=== PATIENT | male | born 1955 | race Caucasian/White ===

== ENCOUNTER 2018-02-23 15:43 | Inpatient (IN) | payer BC ==
[2018-02-23 16:12] LABS: CHLORIDE,CL 102 mEq/L (98-106); SODIUM,NA 138 mEq/L (136-145)
[2018-02-23] MEDS ORDERED: Sodium Chloride 0.9% 10 ML Syringe FLUSH PRN (17:05)
[2018-02-23] MEDS ORDERED: Ondansetron 4 MG Tab.DIS PO PRN (17:05)
[2018-02-23] MEDS ORDERED: Acetaminophen 325 MG Tab PO PRN (17:05)
[2018-02-23 17:09] VITALS: BP 148/79
[2018-02-23] MEDS ORDERED: fentaNYL 100 MCG/2 ML SDV IM PRN (17:11)
[2018-02-23] MEDS ORDERED: Lactated Ringers 1,000 ML IV SCH (17:15)
[2018-02-23] MEDS ORDERED: Piperacillin/Tazobactam 3.375 GM in Sodium Chloride 0.9% 50 ML IV ONE (17:24)
[2018-02-23] MEDS ORDERED: fentaNYL 100 MCG/2 ML SDV IV PRN (17:34)
--- NOTE | 2018-02-23 17:36 | PCM.PN ---
- General Info Date of Service: 02/23/18 Admission Dx/Problem (Free Text): abdominal pain. Perforated bowel secondary to diverticulitis. Functional Status: Reports: Other (pain increases with any movement especially if he sits up.) - Review of Systems General: Reports: No Symptoms HEENT: Reports: No Symptoms Pulmonary: Reports: No Symptoms Cardiovascular: Reports: No Symptoms Gastrointestinal: Reports: Abdominal Pain Genitourinary: Reports: Other (pain radiates into his penis when he moves.) Musculoskeletal: Reports: No Symptoms Skin: Reports: No Symptoms Neurological: Reports: No Symptoms - Patient Data Vitals - Most Recent: Last Vital Signs Temp 99.4 F 02/23/18 16:36 Pulse 95 02/23/18 16:36 Resp 16 02/23/18 16:36 BP 148/79 H 02/23/18 16:36 Pulse Ox 94 L 02/23/18 16:36 Weight - Most Recent: 190 lb Lab Results Last 24 Hours: Laboratory Results - last 24 hr 02/23/18 02/23/18 02/23/18 Range/Units 15:50 15:50 15:50 WBC 23.3 H* (5.0-10.0) 10^3/uL RBC 4.99 (4.50-6.00) 10^6/uL Hgb 15.1 (14.0-18.0) g/dL Hct 43.7 (40.0-54.0) % MCV 87.6 (82.0-94.0) fL MCH 30.3 (27.0-32.0) pg MCHC 34.6 (33.0-38.0) g/dL RDW Coeff of Francine 14.9 (11.0-15.0) % Plt Count 322 (150-400) 10^3/uL Add Manual Diff Yes Neutrophils % (Manual) 81 (35-85) % Band Neutrophils % 7 H (0-5) % Lymphocytes % (Manual) 6 L (21-55) % Monocytes % (Manual) 6 (2-12) % Absolute Neutrophils 20.50 H (1.80-7.00) 10^3/uL Lymphocytes # (Manual) 1.40 (1.00-4.80) 10^3/uL Monocytes # (Manual) 1.40 H (0.00-0.80) 10^3/uL Sodium 138 (136-145) mEq/L Potassium 3.8 (3.5-5.0) mEq/L Chloride 102 (98-106) mEq/L Carbon Dioxide 24 (21-32) mmol/L BUN 15 (7-18) mg/dL Creatinine 1.0 (0.7-1.3) mg/dL Est Cr Clr Drug Dosing TNP Estimated GFR (MDRD) > 60 (>=60) mL/min Glucose 141 H D (75-99) mg/dL Calcium 9.0 (8.4-10.1) mg/dL Total Bilirubin 1.5 H (0.0-1.0) mg/dL AST 15 (15-37) U/L ALT 27 (12-78) U/L Alkaline Phosphatase 80 (46-116) U/L C-Reactive Protein 16.4 H (0.2-0.8) mg/dL Total Protein 8.0 (6.4-8.2) g/dL Albumin 4.0 (3.4-5.0) g/dL Urine Color Dark yellow (YELLOW) Urine Appearance Clear (CLEAR) Urine pH 6.0 (4.5-8.0) Ur Specific [place] >= 1.030 H (1.003-1.020) Urine Protein 100 H (NEGATIVE) mg/dL Urine Glucose (UA) Negative (NEGATIVE) mg/dL Urine Ketones 40 H (NEGATIVE) mg/dL Urine Occult Blood Trace-lysed H (NEGATIVE) Urine Nitrite Negative (NEGATIVE) Urine Bilirubin Small H (NEGATIVE) Urine Urobilinogen 0.2 (0.2-1.0) EU/dL Ur Leukocyte Esterase Negative (NEGATIVE) Urine RBC 0-5 (0-5) /HPF Urine WBC 0-5 (0-5) /HPF Ur Squamous Epith Cells Occasional H (NOT SEEN) /HPF Urine Bacteria Occasional H (NOT SEEN) /HPF Urine Mucus Many H (NOT SEEN) /HPF Med Orders - Current: Current Medications Acetaminophen (Tylenol) 650 mg PO Q4H PRN PRN Reason: Pain (Mild 1-3)/fever Enoxaparin Sodium (Lovenox) 40 mg SUBCUT Q24H [facility] Fentanyl (Sublimaze) 50 mcg IM Q4H PRN PRN Reason: Abdominal Pain Lactated Ringer's (Ringers, Lactated) 1,000 mls @ 250 mls/hr IV ASDIRECTED [facility] Last Admin: 02/23/18 17:20 Dose: 125 mls/hr Piperacillin Sod/Tazobactam (Sod 3.375 gm/ Sodium Chloride) 50 mls @ 100 mls/ hr IV NOW ONE Stop: 02/23/18 17:53 Ondansetron HCl (Zofran Odt) 4 mg PO Q4H PRN PRN Reason: nausea, able to take PO Pantoprazole Sodium (Protonix Iv) 40 mg IVPUSH Q12H [facility] Sodium Chloride (Saline Flush) 10 ml FLUSH ASDIRECTED PRN PRN Reason: Keep Vein Open Discontinued Medications Levofloxacin/Dextrose 500 mg/ (Premix) 100 mls @ 100 mls/hr IV Q24H [facility] Metronidazole 500 mg/ Premix 100 mls @ 100 mls/hr IV Q8H [facility] Sodium Chloride (Normal Saline) Confirm Administered Dose 250 mls @ as directed .ROUTE .STK-MED ONE Stop: 02/23/18 17:44 Piperacillin Sod/Tazobactam Sod (Zosyn) Confirm Administered Dose 3.375 gm .ROUTE .STK-MED ONE Stop: 02/23/18 17:42 - Exam General: Alert, Oriented Neck: Supple Lungs: Clear to Auscultation, Normal Respiratory Effort Cardiovascular: Regular Rate, Regular Rhythm GI/Abdominal Exam: Guarding, Tender, Abnormal Bowel Sounds (No bowel sounds heard currently. Abdomen is distended and tender with any palpation.) Extremities: No Pedal Edema Skin: Warm, Dry Psy/Mental Status: Alert Physical Findings Comments:: Discussed CT findings with Dr. Smith, surgeon at [facility]. He will accept him on transfer per ALS ambulance. Will give Zosyn and LR at 250 ml hour. Will give Fentanyl enroute as needed for pain control. - Problem List & Annotations (1) Diverticular disease of intestine with perforation and abscess SNOMED Code(s): 571376598, 097952607, 401113945 Code(s): K57.80 - DVTRCLI OF INTEST, PART UNSP, W PERF AND ABSCESS W/O BLEED Status: Acute Priority: High Current Visit: Yes - Problem List Review Problem List Initiated/Reviewed/Updated: Yes - My Orders Last 24 Hours: My Active Orders 02/23/18 Abdomen Pelvis w Cont [CT] Routine 02/23/18 15:50 CULTURE BLOOD [BC] Routine 02/23/18 17:05 Patient Status [ADT] Routine Height and Weight [RC] DAILY Oxygen Therapy [RC] PRN Up ad Marcela [RC] ASDIRECTED VTE/DVT Education [RC] PER UNIT ROUTINE Vital Signs [RC] Q4H Acetaminophen [Tylenol] 650 mg PO Q4H PRN Ondansetron [Zofran ODT] 4 mg PO Q4H PRN Sodium Chloride 0.9% [Saline Flush] 10 ml FLUSH ASDIRECTED PRN Peripheral IV Insertion Adult [OM.PC] Routine Resuscitation Status Routine 02/23/18 17:06 Intake and Output [RC] QSHIFT Pulse Oximetry [RC] PRN 02/23/18 17:08 Peripheral IV Care [RC] . DIRECTED 02/23/18 17:11 fentaNYL [Sublimaze] 50 mcg IM Q4H PRN 02/23/18 17:15 Lactated Ringers [Ringers, Lactated] 1,000 ml IV ASDIRECTED 02/23/18 17:24 Piperacillin/Tazobactam [Zosyn] 3.375 gm Sodium Chloride 0.9% [Normal Saline] 50 ml IV NOW 02/23/18 18:00 Pantoprazole [ProTONIX IV] 40 mg IVPUSH Q12H 02/23/18 20:00 Enoxaparin [Lovenox] 40 mg SUBCUT Q24H 02/23/18 Dinner Nothing per Oral Now Diet [DIET] 02/24/18 05:11 C-REACTIVE PROTEIN [CHEM] AM CBC W/O DIFF,HEMOGRAM [HEME] AM COMPREHENSIVE METABOLIC PN,CMP [CHEM] AM
[2018-02-23] MEDS ORDERED: Sodium Chloride 0.9% 250 ML ONE (17:43)
--- NOTE | 2018-02-23 17:46 | PCM.DCSUM1 ---
Discharge Summary - Hospital Course Brief History: Pt was admitted from the clinic with severe abdominal pain that started about 2300 last evening. Has had some fevers during the night. Did feel some better this morning and then became worse this afternoon. CT was done at admit and was found to have diverticulitis with perforation. - Discharge Data Discharge Date: 02/23/18 Discharge Disposition: DC/Tfer to Acute Hospital 02 Condition: Fair - Discharge Diagnosis/Problem(s) (1) Diverticular disease of intestine with perforation and abscess SNOMED Code(s): 028588800, 720981741, [id number] ICD Code: K57.80 - DVTRCLI OF INTEST, PART UNSP, W PERF AND ABSCESS W/O BLEED Status: Acute Priority: High Current Visit: Yes - Patient Instructions Diet: NPO Activity: Bedrest - Discharge Plan Home Medications: Home Meds Aspirin [Halfprin] 81 mg PO DAILY 01/14/14 [History] Cholecalciferol (Vitamin D3) [Vitamin D] 1,000 units PO DAILY 01/14/14 [History] Ubidecarenone [Coenzyme Q10] 50 mg PO DAILY 01/14/14 [History] Magnesium 250 mg PO DAILY 08/28/15 [History] atorvaSTATin [Lipitor] 5 mg PO DAILY 08/28/15 [History] - Discharge Summary/Plan Comment DC Time >30 min.: No Discharge Summary/Plan Comment: Will transfer to [facility] to Dr. Smith per ALS ambulance with Fentanyl as needed for pain control enroute. LR @ 250 ml/ hour enroute. To remain NPO enroute. - Patient Data Vitals - Most Recent: Last Vital Signs Temp 99.4 F 02/23/18 16:36 Pulse 95 02/23/18 16:36 Resp 16 02/23/18 16:36 BP 148/79 H 02/23/18 16:36 Pulse Ox 94 L 02/23/18 16:36 Weight - Most Recent: 190 lb Lab Results - Last 24 hrs: Laboratory Results - last 24 hr 02/23/18 02/23/18 02/23/18 Range/Units 15:50 15:50 15:50 WBC 23.3 H* (5.0-10.0) 10^3/uL RBC 4.99 (4.50-6.00) 10^6/uL Hgb 15.1 (14.0-18.0) g/dL Hct 43.7 (40.0-54.0) % MCV 87.6 (82.0-94.0) fL MCH 30.3 (27.0-32.0) pg MCHC 34.6 (33.0-38.0) g/dL RDW Coeff of Francine 14.9 (11.0-15.0) % Plt Count 322 (150-400) 10^3/uL Add Manual Diff Yes Neutrophils % (Manual) 81 (35-85) % Band Neutrophils % 7 H (0-5) % Lymphocytes % (Manual) 6 L (21-55) % Monocytes % (Manual) 6 (2-12) % Absolute Neutrophils 20.50 H (1.80-7.00) 10^3/uL Lymphocytes # (Manual) 1.40 (1.00-4.80) 10^3/uL Monocytes # (Manual) 1.40 H (0.00-0.80) 10^3/uL Sodium 138 (136-145) mEq/L Potassium 3.8 (3.5-5.0) mEq/L Chloride 102 (98-106) mEq/L Carbon Dioxide 24 (21-32) mmol/L BUN 15 (7-18) mg/dL Creatinine 1.0 (0.7-1.3) mg/dL Est Cr Clr Drug Dosing TNP Estimated GFR (MDRD) > 60 (>=60) mL/min Glucose 141 H D (75-99) mg/dL Calcium 9.0 (8.4-10.1) mg/dL Total Bilirubin 1.5 H (0.0-1.0) mg/dL AST 15 (15-37) U/L ALT 27 (12-78) U/L Alkaline Phosphatase 80 (46-116) U/L C-Reactive Protein 16.4 H (0.2-0.8) mg/dL Total Protein 8.0 (6.4-8.2) g/dL Albumin 4.0 (3.4-5.0) g/dL Urine Color Dark yellow (YELLOW) Urine Appearance Clear (CLEAR) Urine pH 6.0 (4.5-8.0) Ur Specific [place] >= 1.030 H (1.003-1.020) Urine Protein 100 H (NEGATIVE) mg/dL Urine Glucose (UA) Negative (NEGATIVE) mg/dL Urine Ketones 40 H (NEGATIVE) mg/dL Urine Occult Blood Trace-lysed H (NEGATIVE) Urine Nitrite Negative (NEGATIVE) Urine Bilirubin Small H (NEGATIVE) Urine Urobilinogen 0.2 (0.2-1.0) EU/dL Ur Leukocyte Esterase Negative (NEGATIVE) Urine RBC 0-5 (0-5) /HPF Urine WBC 0-5 (0-5) /HPF Ur Squamous Epith Cells Occasional H (NOT SEEN) /HPF Urine Bacteria Occasional H (NOT SEEN) /HPF Urine Mucus Many H (NOT SEEN) /HPF Med Orders - Current: Current Medications Acetaminophen (Tylenol) 650 mg PO Q4H PRN PRN Reason: Pain (Mild 1-3)/fever Enoxaparin Sodium (Lovenox) 40 mg SUBCUT Q24H [facility] Fentanyl (Sublimaze) 50 mcg IV Q4H PRN PRN Reason: Abdominal Pain Lactated Ringer's (Ringers, Lactated) 1,000 mls @ 250 mls/hr IV ASDIRECTED [facility] Last Admin: 02/23/18 17:20 Dose: 125 mls/hr Piperacillin Sod/Tazobactam (Sod 3.375 gm/ Sodium Chloride) 50 mls @ 100 mls/ hr IV NOW ONE Stop: 02/23/18 17:53 Last Admin: 02/23/18 17:40 Dose: 100 mls/hr Ondansetron HCl (Zofran Odt) 4 mg PO Q4H PRN PRN Reason: nausea, able to take PO Pantoprazole Sodium (Protonix Iv) 40 mg IVPUSH Q12H [facility] Last Admin: 02/23/18 17:35 Dose: Not Given Sodium Chloride (Saline Flush) 10 ml FLUSH ASDIRECTED PRN PRN Reason: Keep Vein Open Discontinued Medications Fentanyl (Sublimaze) 50 mcg IM Q4H PRN PRN Reason: Abdominal Pain Levofloxacin/Dextrose 500 mg/ (Premix) 100 mls @ 100 mls/hr IV Q24H [facility] Metronidazole 500 mg/ Premix 100 mls @ 100 mls/hr IV Q8H [facility] Sodium Chloride (Normal Saline) Confirm Administered Dose 250 mls @ as directed .ROUTE .STK-MED ONE Stop: 02/23/18 17:44 Last Admin: 02/23/18 17:35 Dose: Not Given Piperacillin Sod/Tazobactam Sod (Zosyn) Confirm Administered Dose 3.375 gm .ROUTE .[facility]-MED ONE Stop: 02/23/18 17:42 Last Admin: 02/23/18 17:35 Dose: Not Given
[2018-02-23] MEDS ORDERED: Pantoprazole 40 MG Vial IVPUSH SCH (18:00)
[2018-02-23] MEDS ORDERED: metroNIDAZOLE/Normal Saline 500 MG in Premix Bag 1 BAG IV SCH (18:00)
[2018-02-23] MEDS ORDERED: Levofloxacin/Dextrose 5%-Water 500 MG in Premix Bag 1 BAG IV SCH (19:00)
[2018-02-23] MEDS ORDERED: Enoxaparin 40 MG/0.4 ML Syringe SUBCUT SCH (20:00)
== END 2018-02-23 18:00 | DRG 244 ==
LOC: CC.FCMC 15:43 → CC.MS 15:43 → UNDOADMIN 16:32 → CC.MS 17:05
PROVIDERS: ADMIT Physician Assistant Medical; ATTEND General Practice
DX: K57.20 Diverticulitis of large intestine with perforation and abscess without bleeding (principal); K57.90 Diverticulosis of intestine, part unspecified, without perforation or abscess without bleeding; Z88.2 Allergy status to sulfonamides; Z88.8 Allergy status to other drugs, medicaments and biological substances; Z79.82 Long term (current) use of aspirin; Z79.899 Other long term (current) drug therapy
CPT/HCPCS: 36415; 74177; 80053; 81001; 85025; 86140; 87040; J2543; J3010; J7050; J7120; Q9967

== ENCOUNTER 2018-05-16 07:54 | Emergency (ER) | payer BC ==
--- NOTE | 2018-05-16 08:13 | EDM.PDOC ---
ED HPI GENERAL MEDICAL PROBLEM - General Stated Complaint: CAN'T URINATE Time Seen by Provider: 05/16/18 08:13 Source of Information: Reports: Patient - History of Present Illness INITIAL COMMENTS - FREE TEXT/NARRATIVE: Sami is a 62 year old male, with PMH of BPH and hyperlipidemia, who presents to the ED with c/o inability to urinate. He reports that throughout the night he noted he was only dribbling small amounts of urine. He reports that around 5 am he was unable to urinate and started having suprapubic pain, as well as pain in his lower back. Prior to this he had no urinary issues. He denies any hematuria, dysuria, or frequency increased from baseline. He does report that in 2016 he had similar issue. He reports he had a catheter placed for a day and then he was able to void normally. He reports he follows with Dr. Gross (urology ) for persistently elevated PSA. He was last seen in January with PSA of 41.52. Per record he has had 6 negative biopsies as well as a prostate MRI. He reports he had a sigmoid colectomy with end colostomy due to perforated diverticulitis on 02/23/2018. He reports he has been doing well with the colostomy and has had good output up until this morning. Reports that normally in the morning his ostomy bag is full, but this morning he hasn't had anything out. He did report he has not eaten breakfast yet this morning, but did have a cup of coffee. He reports that yesterday he was feeling well and had no issues prior to going to sleep last night. He denies any fever, chills, nausea, vomiting, dysuria, hematuria, abdominal pain, decreased appetite, weakness. Onset: Today Duration: Getting Worse Location: Reports: Abdomen (suprapubic), Back (lower R> L) Associated Symptoms: Reports: Other (inablity to urinate). Denies: Confusion, Chest Pain, Cough, cough w sputum, Diaphoresis, Fever/Chills, Headaches, Loss of Appetite, Malaise, Nausea/Vomiting, Rash, Seizure, Shortness of Breath, Syncope, Weakness Lower Back Pain Score (Numeric/FACES): 6 - Related Data Allergies Allergy/AdvReac Type Severity Reaction Status Date / Time ezetimibe Allergy Muscle Verified 05/16/18 10:05 [From Vytorin 10-10] Aches simvastatin Allergy Muscle Verified 05/16/18 10:05 [From Vytorin 10-10] Aches Sulfa (Sulfonamide Allergy Rash Verified 05/16/18 10:05 Antibiotics) Home Meds: Home Meds Aspirin [Halfprin] 81 mg PO DAILY 01/14/14 [History] Cholecalciferol (Vitamin D3) [Vitamin D] 1,000 units PO DAILY 01/14/14 [History] Ubidecarenone [Coenzyme Q10] 50 mg PO DAILY 01/14/14 [History] Magnesium 250 mg PO DAILY 08/28/15 [History] atorvaSTATin [Lipitor] 5 mg PO DAILY 08/28/15 [History] Tamsulosin HCl [Flomax] 0.4 mg PO DAILY 30 Days #30 cap.er.24h 05/16/18 [Rx] Past Medical History Cardiovascular History: Reports: High Cholesterol Gastrointestinal History: Reports: Diverticulosis Genitourinary History: Reports: BPH, Prostate Disorder, UTI, Recurrent Other Musculoskeletal History: arthritis throughout - Past Surgical History GI Surgical History: Reports: Colonoscopy Other Musculoskeletal Surgeries/Procedures:: R foot surgery Social & Family History - Family History Family Medical History: Noncontributory ED ROS GENERAL - Review of Systems Review Of Systems: ROS reveals no pertinent complaints other than HPI. Constitutional: Reports: No Symptoms. Denies: Fever, Chills, Weakness, Fatigue , Decreased Appetite Respiratory: Reports: No Symptoms Cardiovascular: Reports: No Symptoms GI/Abdominal: Reports: Other (colostomy decreased output). Denies: Abdominal Pain, Black Stool, Bloody Stool, Constipation, Diarrhea, Decreased Appetite, Nausea, Vomiting : Reports: Flank Pain, Urinary Retention. Denies: Discharge, Dysuria, Frequency, Hematuria, Urgency Musculoskeletal: Reports: Back Pain Skin: Reports: No Symptoms Neurological: Reports: No Symptoms Psychiatric: Reports: No Symptoms Hematologic/Lymphatic: Reports: No Symptoms Immunologic: Reports: No Symptoms ED EXAM, RENAL/ - Physical Exam Exam: See Below Exam Limited By: No Limitations General Appearance: Alert, WD/WN, No Apparent Distress Head: Atraumatic, Normocephalic Neck: Normal Inspection, Supple, Non-Tender, Full Range of Motion Respiratory/Chest: No Respiratory Distress, Lungs Clear, Normal Breath Sounds, No Accessory Muscle Use, Chest Non-Tender Cardiovascular: Normal Peripheral Pulses, Regular Rate, Rhythm, No Edema, No Gallop, No JVD, No Murmur, No Rub GI/Abdominal: Normal Bowel Sounds, Soft, Non-Tender, No Distention, Other ( colostomy) (Male) Exam: Suprapubic Fullness. No: Scrotum Tenderness (L), Scrotum Tenderness (R), Urethral Discharge Back Exam: Normal Inspection, Full Range of Motion, CVA Tenderness (R). No: CVA Tenderness (L) Extremities: Normal Inspection, Normal Range of Motion, Non-Tender, Normal Capillary Refill, No Pedal Edema Neurological: Alert, Oriented, CN II-XII Intact, Normal Cognition, Normal Gait, Normal Reflexes, No Motor/Sensory Deficits Psychiatric: Normal Affect, Normal Mood Skin Exam: Warm, Dry, Intact, Normal Color, No Rash Lymphatic: No Adenopathy Course - Vital Signs Last Recorded V/S: Last Vital Signs Temp 95.5 F 05/16/18 08:00 Pulse 83 05/16/18 08:00 Resp 16 05/16/18 08:00 BP 144/70 H 05/16/18 09:45 Pulse Ox 98 05/16/18 08:00 - Orders/Labs/Meds Labs: Laboratory Tests 05/16/18 Range/Units 08:15 Urine Color Yellow (YELLOW) Urine Appearance Clear (CLEAR) Urine pH 6.5 (4.5-8.0) Ur Specific [place] 1.010 (1.003-1.020) Urine Protein Negative (NEGATIVE) mg/dL Urine Glucose (UA) Negative (NEGATIVE) mg/dL Urine Ketones Negative (NEGATIVE) mg/dL Urine Occult Blood Moderate H (NEGATIVE) Urine Nitrite Negative (NEGATIVE) Urine Bilirubin Negative (NEGATIVE) Urine Urobilinogen 0.2 (0.2-1.0) EU/dL Ur Leukocyte Esterase Negative (NEGATIVE) Urine RBC 20-30 H (0-5) /HPF Urine WBC Not seen (0-5) /HPF Ur Squamous Epith Cells Occasional H (NOT SEEN) /HPF Urine Bacteria Occasional H (NOT SEEN) /HPF Urine Mucus Occasional H (NOT SEEN) /HPF - Re-Assessments/Exams Free Text/Narrative Re-Assessment/Exam: Nursing staff attempted 16 F prince catheter and met resistance. Coude then placed without difficulty and 600 mL urine returned. UA sent to lab. UA negative except for RBCs, likely from traumatizing catheterization. Departure - Departure Time of Disposition: 09:29 Disposition: Home, Self-Care 01 Condition: Good Clinical Impression: Urinary retention due to benign prostatic hyperplasia - Discharge Information Prescriptions: Tamsulosin HCl [Flomax] 0.4 mg PO DAILY 30 Days #30 cap.er.24h Instructions: Benign Prostatic Hyperplasia, Indwelling Urinary Catheter Insertion, Care After Referrals: Dylan Gross MD [Physician] - Forms: ED Department Discharge Additional Instructions: Urine analysis negative Start Flomax daily. Script sent to pharmacy. Keep Prince catheter in place until f/u with urology. Notify clinic if any issues with output from colostomy Return to ED for any other emergent needs
[2018-05-16 10:13] VITALS: BP 144/70
== END 2018-05-16 10:00 | disposition home or self-care (01) ==
LOC: CC.ED 07:54
DX: N40.1 Benign prostatic hyperplasia with lower urinary tract symptoms (principal); R33.8 Other retention of urine; E78.00 Pure hypercholesterolemia, unspecified; Z79.82 Long term (current) use of aspirin; Z79.899 Other long term (current) drug therapy; Z88.2 Allergy status to sulfonamides; Z88.8 Allergy status to other drugs, medicaments and biological substances
CPT/HCPCS: 51701; 51702; 81001; 99283

== ENCOUNTER → 2021-01-23 | Day surgery (SDC) | payer BC ==
[~2021-01-23] MED LIST: Ketamine 200 MG/20 ML MDV ONE; Lactated Ringers 1,000 ML IV SCH; Lidocaine 2% 5 ML SDV ONE; Propofol 200 MG/20 ML SDV ONE
[2021-01-23 09:36] VITALS: BP 125/66; PULSE 59
--- NOTE | 2021-01-23 11:53 | OR ---
DATE OF OPERATION: 01/23/2021 PREOPERATIVE DIAGNOSIS: HISTORY OF POLYPS. POSTOPERATIVE DIAGNOSIS: HISTORY OF POLYPS. SURGEON: Oleksandr Taylor MD PROCEDURE: DIAGNOSTIC COLONOSCOPY WITH FORCEPS POLYP REMOVAL X3. ANESTHESIA: MAC. COMPLICATIONS: None. SPECIMEN: Three small sessile polyps, each 2 to 3 mm. FINDINGS: 1. Full-length colonoscopy. 2. Status post partial sigmoidectomy. 3. Diverticulosis. 4. Polyps x3. RECOMMENDATIONS: Followup colonoscopy in 5 years. INDICATIONS: Mr. Chavez has a history of polyps removed in the past, once with a large tubulovillous lesion in the rectosigmoid area. He is due for a followup scope. DESCRIPTION OF PROCEDURE: The patient was prepped and draped, placed in the left lateral decubitus position. A lubricated Olympus colonoscope was inserted and with ease advanced to the cecum. Direct visualization of the ileocecal valve and appendiceal orifice was accomplished. The bowel prep was excellent. Upon withdrawal of the scope, cecum, ascending, and transverse colons were completely benign. Left colon is markedly short and as stated earlier, there is still some residual diverticular disease there. In the distal sigmoid area what is left of the sigmoid, the patient had a small 2 mm sessile polyp removed in its entirety with a forceps. He had a second one in the rectosigmoid junction, also about 2 to 3 mm, easily removed with a forceps x2 and the last small polyp in the rectal vault approximately 2 or 3 mm removed with 2 forceps biopsies as well. Retroflexion showed some perianal hemorrhoid disease. Air was suctioned and scope removed without complication. NADINE/JEREMY /[id number]
== END ==
LOC: CC.SDS 07:25
PROVIDERS: ATTEND Family Medicine
DX: Z12.11 Encounter for screening for malignant neoplasm of colon (principal); D12.5 Benign neoplasm of sigmoid colon; K62.1 Rectal polyp; K57.30 Diverticulosis of large intestine without perforation or abscess without bleeding; K64.8 Other hemorrhoids; N40.1 Benign prostatic hyperplasia with lower urinary tract symptoms; R35.1 Nocturia; I10 Essential (primary) hypertension; E78.5 Hyperlipidemia, unspecified; Z88.2 Allergy status to sulfonamides; Z88.8 Allergy status to other drugs, medicaments and biological substances; Z79.899 Other long term (current) drug therapy; Z86.010 Personal history of colon polyps; Z90.49 Acquired absence of other specified parts of digestive tract; Z98.890 Other specified postprocedural states
CPT/HCPCS: 00812; J2704; J7120

== ENCOUNTER 2021-05-11 05:30 | Emergency (ER) | payer MEDICARE, BC ==
--- NOTE | 2021-05-11 06:25 | EDM.PDOC ---
ED HPI GENERAL MEDICAL PROBLEM - General Chief Complaint: General Stated Complaint: "I need a catheter" Time Seen by Provider: 05/11/21 06:00 Source of Information: Reports: Patient History Limitations: Reports: No Limitations - History of Present Illness INITIAL COMMENTS - FREE TEXT/NARRATIVE: Pt states that the last time he was able to urinate was about 2200. He tried again about midnight and has not been able to since. He now feels lots of pressure and back and pelvic pain. He presented to ER with increasing pain. He has known prostate issues and does see Dr. Gross and last saw him several months ago. Had been stable. He states that he had been doing well and has not done anything different prior to not able to void tonight. He states that he had no difficulty emptying his bladder at 2200. Onset: Gradual Duration: Getting Worse Location: Reports: Abdomen Bladder Pain Score (Numeric/FACES): 10 - Related Data Allergies Allergy/AdvReac Type Severity Reaction Status Date / Time ezetimibe Allergy Muscle Verified 05/12/21 14:30 [From Vytorin 10-10] Aches simvastatin Allergy Muscle Verified 05/12/21 14:30 [From Vytorin 10-10] Aches Sulfa (Sulfonamide Allergy Rash Verified 05/12/21 14:30 Antibiotics) Home Meds: Home Meds Ubidecarenone [Coenzyme Q10] 100 mg PO DAILY 01/14/14 [History] Magnesium 250 mg PO DAILY 08/28/15 [History] atorvaSTATin [Lipitor] 5 mg PO DAILY 08/28/15 [History] Tamsulosin HCl [Flomax] 0.4 mg PO DAILY 30 Days #30 cap.er.24h 05/16/18 [Rx] Ascorbic Acid [Vitamin C] 1,000 mg PO DAILY 01/22/21 [History] Cholecalciferol (Vitamin D3) [Vitamin D3] 5,000 unit PO DAILY 01/22/21 [History] lisinopriL [Lisinopril] 40 mg PO DAILY 01/22/21 [History] Past Medical History Cardiovascular History: Reports: High Cholesterol Gastrointestinal History: Reports: Diverticulosis Genitourinary History: Reports: BPH, Prostate Disorder, UTI, Recurrent Other Musculoskeletal History: arthritis throughout - Past Surgical History GI Surgical History: Reports: Colonoscopy Other Musculoskeletal Surgeries/Procedures:: R foot surgery Social & Family History - Family History Family Medical History: No Pertinent Family History - Tobacco Use Tobacco Use Status *Q: Unknown Ever Used Tobacco - Caffeine Use Caffeine Use: Reports: Coffee - Living Situation & Occupation Living situation: Reports: , with Spouse Occupation: Retired ED ROS GENERAL - Review of Systems Review Of Systems: See Below Constitutional: Denies: Fever, Chills : Reports: Hematuria, Pain, Urinary Retention Musculoskeletal: Reports: Back Pain ED EXAM, GENERAL - Physical Exam Exam: See Below Exam Limited By: No Limitations General Appearance: Alert, WD/WN, Moderate Distress Respiratory/Chest: No Respiratory Distress, Lungs Clear, Normal Breath Sounds Cardiovascular: Normal Peripheral Pulses, Regular Rate, Rhythm, No Edema GI/Abdominal: Normal Bowel Sounds, Soft, Tender (to the suprapubic area with any palpation. Bladder in enlarged and tender.) Back Exam: Normal Inspection, Other (tender to the low back.) Neurological: Alert, Oriented Course - Vital Signs Last Recorded V/S: Last Vital Signs Temp 96.6 F L 05/11/21 07:28 Pulse 66 05/11/21 07:28 Resp 18 05/11/21 07:28 BP 118/57 L 05/11/21 07:28 Pulse Ox 95 05/11/21 07:28 - Orders/Labs/Meds Labs: Laboratory Tests 05/11/21 Range/Units 06:23 Urine Color Red (YELLOW) Urine Appearance Turbid (CLEAR) Urine pH 6.0 (4.5-8.0) Ur Specific [place] 1.020 (1.003-1.020) Urine Protein 100 H (NEGATIVE) mg/dL Urine Glucose (UA) Negative (NEGATIVE) mg/dL Urine Ketones Negative (NEGATIVE) mg/dL Urine Occult Blood Large H (NEGATIVE) Urine Nitrite Negative (NEGATIVE) Urine Bilirubin Negative (NEGATIVE) Urine Urobilinogen 0.2 (0.2-1.0) EU/dL Ur Leukocyte Esterase Small H (NEGATIVE) Urine RBC Packed H (0-5) /HPF Urine WBC 0-5 (0-5) /HPF - Re-Assessments/Exams Free Text/Narrative Re-Assessment/Exam: 05/11/21 0600 Multiple attempts were made to insert catheter and finally using a stylet was able to pass through. UA was obtained. 05/11/21 07:18 UA is negative for infection. he has had difficulty urinating in the past with prostate problems he will be discharged with catheter in place until seen next week by Dr. Gross. Departure - Departure Time of Disposition: 07:19 Disposition: Home, Self-Care 01 Clinical Impression: Retention of urine - Discharge Information *PRESCRIPTION DRUG MONITORING PROGRAM REVIEWED*: Not Applicable *COPY OF PRESCRIPTION DRUG MONITORING REPORT IN PATIENT ANDREINA: Not Applicable Instructions: Acute Urinary Retention, Male Referrals: PCP,Unknown [Ordering Only Provider] - Forms: ED Department Discharge Additional Instructions: Discharge at this time with catheter in place. will call with appt for Dr. Gross Leave catheter in until seen by Dr. Gross. Sepsis Event Note (ED) - Evaluation Sepsis Screening Result: No Definite Risk - Problem List & Annotations (1) Urinary retention due to benign prostatic hyperplasia SNOMED Code(s): 196405199, [id number] Code(s): N40.1 - BENIGN PROSTATIC HYPERPLASIA WITH LOWER URINARY TRACT SYMP; R33.8 - OTHER RETENTION OF URINE Status: Acute Priority: High - Problem List Review Problem List Initiated/Reviewed/Updated: Yes
[2021-05-11 07:29] VITALS: BP 118/57; PULSE 66
== END 2021-05-11 07:59 | disposition home or self-care (01) ==
LOC: CC.ED 05:30
DX: N40.1 Benign prostatic hyperplasia with lower urinary tract symptoms (principal); R33.8 Other retention of urine; Z79.899 Other long term (current) drug therapy; E78.00 Pure hypercholesterolemia, unspecified; Z88.8 Allergy status to other drugs, medicaments and biological substances
CPT/HCPCS: 51702; 81001; 99283-25

== ENCOUNTER 2022-07-25 08:45 | Emergency (ER) | payer MEDICARE, BC ==
[2022-07-25 12:43] VITALS: BP 142/76; PULSE 68
== END 2022-07-25 11:25 | disposition home or self-care (01) ==
LOC: CC.ED 08:45
DX: R33.9 Retention of urine, unspecified (principal); E78.00 Pure hypercholesterolemia, unspecified; N40.0 Benign prostatic hyperplasia without lower urinary tract symptoms; Z88.2 Allergy status to sulfonamides; Z88.8 Allergy status to other drugs, medicaments and biological substances; Z79.899 Other long term (current) drug therapy
CPT/HCPCS: 81001; 99284

== ENCOUNTER 2022-09-02 02:39 | Emergency (ER) | payer MEDICARE, BC ==
[2022-09-02 02:44] VITALS: BP 180/102; PULSE 66
[2022-09-02] MEDS: Lidocaine 2% Viscous Solution 15 ML UD TOP ONE (04:12)
[2022-09-02] MEDS ORDERED: Lidocaine 2% Viscous Solution 15 ML UD ONE ×2 (04:12→04:27)
[2022-09-02] MEDS: Morphine 2 MG/ML SYRINGE IVPUSH ONE (04:14)
[2022-09-02] MEDS: Morphine 2 MG/ML SYRINGE IVPUSH PRN (04:52)
== END 2022-09-02 05:04 ==
LOC: CC.ED 02:39
DX: R33.9 Retention of urine, unspecified (principal); Z88.8 Allergy status to other drugs, medicaments and biological substances; Z88.2 Allergy status to sulfonamides; Z79.899 Other long term (current) drug therapy
CPT/HCPCS: 36415; 51702; 74176; 80053; 85025; 96374; 96376; 99284; 99285-25; A9270-GY; J2270